=== PATIENT | male | born 1950 | race Caucasian/White ===

== ENCOUNTER 2017-12-01 14:53 | Emergency (ER) | payer OTHER, BC ==
[~2017-12-01] VITALS: Ht 182.9 cm; Wt 72.6 kg
[2017-12-01] MEDS ORDERED: ESZO3 PO (15:15)
[2017-12-01] MEDS ORDERED: QUET25 (15:15)
[2017-12-01] MEDS ORDERED: IBUP800 PO (18:04)
[2017-12-01] MEDS ORDERED: CYCL10 PO (18:04)
== END 2017-12-01 18:08 | disposition home or self-care (01) ==
LOC: ER 14:53
DX: S16.1XXA Strain of muscle, fascia and tendon at neck level, initial encounter (principal); Z79.899 Other long term (current) drug therapy; Z87.891 Personal history of nicotine dependence; V47.6XXA Car passenger injured in collision with fixed or stationary object in traffic accident, initial encounter
CPT/HCPCS: 72040; J1885; L0160